=== PATIENT | female | born 1960 | race Caucasian/White ===

== ENCOUNTER 2016-10-16 15:29 | Outpatient (CLI) | payer BC ==
--- NOTE | 2016-10-17 21:22 | Mammography Report ---
DIGITAL SCREENING MAMMOGRAM: 10/16/2016 CLINICAL INDICATION: A 56-year-old with history of benign left breast biopsy, bilateral implants for screening. COMPARISON: 09/2015, 07/2014, 07/2013, 07/2012, 01/2012, 07/2011, 05/2010, 12/2008. TECHNIQUE: Routine CC and MLO projections as well as bilateral implant displaced views were obtained of the breasts. The breasts again demonstrate heterogeneously dense fibroglandular parenchyma bilaterally. Bilateral subpectoral implants are stable. In the left lower inner anterior breast, there is a possible obscu red nodule. Further evaluation with spot compression views and possible ultrasound is recommended. No mammographically suspicious findings are appreciated in the right breast. IMPRESSION: INCOMPLETE EXAMINATION. RECOMMENDATION: ADDITIONAL EVALUATION OF THE LEFT BREAST ABOVE. BIRADS CATEGORY: 0, INCOMPLETE. STANDARD QUALIFYING STATEMENTS 1. This examination was reviewed with the aid of Computed-Aided Detection (CAD). 2. A negative or benign imaging report should not delay biopsy if clinically suspicious findings are present. Consider surgical consultation if warranted. More than 5% of cancers are not identified b y imaging. 3. Dense breasts may obscure an underlying neoplasm. JOB #: [id number] EXT JOB #:[id number]
== END 2016-10-16 15:30 | disposition home or self-care (01) ==
LOC: DI.N 15:29
PROVIDERS: ATTEND Family Medicine
DX: Z12.31 Encounter for screening mammogram for malignant neoplasm of breast (principal); R92.8 Other abnormal and inconclusive findings on diagnostic imaging of breast; Z98.82 Breast implant status
CPT/HCPCS: 77067

== ENCOUNTER 2016-10-31 13:48 | Outpatient (CLI) | payer BC ==
--- NOTE | 2016-10-31 18:18 | Ultrasound Report ---
LEFT BREAST ULTRASOUND: 10/31/2016 CLINICAL INDICATION: Persistent density on mammogram. TECHNIQUE: Real-time scanning was performed with roofing sales representative static images obtained. FINDINGS: Ultrasound of the left periareolar breast was performed. Prominent subareolar ducts are n oted. No intraductal mass or abnormal vascularity is appreciated. No sonographically suspicious fin dings are seen. IMPRESSION: SUBAREOLAR DUCTS, ACCOUNTING FOR THE MAMMOGRAPHIC ABNORMALITY. RECOMMENDATION: Routine annual screening unless otherwise clinically indicated. BI-RADS category 2, benign findings. JOB #: [id number] EXT JOB #:[id number]
--- NOTE | 2016-10-31 19:01 | Mammography Report ---
DIGITAL DIAGNOSTIC LEFT MAMMOGRAM: 10/31/2016 CLINICAL INDICATION: Possible nodule on screening. TECHNIQUE: Left true lateral and spot compression views. COMPARISON: 10/16/2016, 10/06/2015, 08/04/2014, 07/22/2013, 07/23/2012, 01/17/2012, 08/17/2011, 07/10, 07/28/2011, 05/26/2010, 12/31/2008. The left breast again demonstrates heterogeneously dense fibroglandular parenchyma. A 1 cm density p ersists in the left retroareolar breast. No associated calcifications are seen. Please also refer t o left breast ultrasound for further findings. IMPRESSION: BENIGN FINDINGS, WITH PROMINENT SUBAREOLAR DUCTS ACCOUNTING FOR THE MAMMOGRAPHIC ABNORMA LITY, WITHOUT EVIDENCE OF AN INTRALUMINAL FILLING DEFECT OR OTHER SUSPICIOUS FINDING. RECOMMENDATION: ROUTINE ANNUAL SCREENING UNLESS OTHERWISE CLINICALLY INDICATED. BIRADS CATEGORY: 2, BENIGN FINDINGS. STANDARD QUALIFYING STATEMENTS 1. This examination was reviewed with the aid of Computed-Aided Detection (CAD). 2. A negative or benign imaging report should not delay biopsy if clinically suspicious findings are present. Consider surgical consultation if warranted. More than 5% of cancers are not identified b y imaging. 3. Dense breasts may obscure an underlying neoplasm. JOB #: [id number] EXT JOB #:[id number]
== END 2016-10-31 13:49 | disposition home or self-care (01) ==
LOC: DI 13:48
PROVIDERS: ATTEND Family Medicine
DX: N63 Unspecified lump in breast (principal)
CPT/HCPCS: 76642

== ENCOUNTER 2017-04-10 07:10 | Outpatient (CLI) | payer BC ==
[2017-04-10 13:04] LABS: BASOPHILS % (AUTO) 0.5 %; EOSINOPHILS # (AUTO) 0.1 10^3/uL (0.0-0.7); EOSINOPHILS % (AUTO) 3.3 %; HGB - HEMOGLOBIN 12.7 g/dL (12.0-16.0); LYMPHOCYTES # (AUTO) 1.7 10^3/uL (1.5-3.5); LYMPHOCYTES % (AUTO) 37.5 %; MEAN CORPUSCULAR HGB CONC 34.3 g/dL (32.0-36.0); MEAN CORPUSCULAR VOLUME 84.7 fL (81.0-99.0); MEAN PLATELET VOLUME 9.1 fL (7.9-10.8); MONOCYTES # (AUTO) 0.5 10^3/uL (0.0-1.0); NEUTROPHILS # (AUTO) 2.1 10^3/uL (1.5-6.6); NEUTROPHILS % (AUTO) 46.7 %; PLT - PLATELET COUNT 167 10^3/uL (130-450); RED BLOOD COUNT 4.38 10^6/uL (4.20-5.40); RED CELL DISTRIBUTION WIDTH 12.9 % (12.0-15.0); WHITE BLOOD COUNT 4.5 x10^3/uL (4.8-10.8)
[2017-04-10 13:24] LABS: ALBUMIN 4.1 g/dL (3.2-5.5); ALBUMIN/GLOBULIN RATIO 1.5 (1.0-2.2); ALKALINE PHOSPHATASE 65 IU/L (42-121); ALT ALANINE AMINOTRANSFERASE 16 IU/L (10-60); AST ASPARTATE AMINOTRANSFERASE 21 IU/L (10-42); BUN - BLOOD UREA NITROGEN 13 mg/dL (6-20); CARBON DIOXIDE - CO2 31 mmol/L (21-32); CHLORIDE 103 mmol/L (101-111); CHOL/HDL RATIO 2.5 (<4.4); CHOLESTEROL 162 mg/dL; CREATININE 0.7 mg/dL (0.4-1.0); GFR - MDRD 87 (>89); GLUCOSE 98 mg/dL (70-100); HDL CHOLESTEROL 65 mg/dL; LDL CHOLESTEROL,CALCULATED 88 mg/dL; LDL/HDL RATIO 1.4 (<4.4); SODIUM 140 mmol/L (135-145); TOTAL PROTEIN 6.8 g/dL (6.7-8.2); VLDL CHOLESTEROL 9 mg/dL
[2017-04-10 13:55] LABS: HB2 TOTAL 13.6 g/dL; HEMOGLOBIN A1C 0.43 g/dL
== END 2017-04-10 07:11 | disposition home or self-care (01) ==
LOC: LAB.WCP 07:10
PROVIDERS: ATTEND Family Medicine
DX: Z00.00 Encounter for general adult medical examination without abnormal findings (principal)
CPT/HCPCS: 36415; 80053; 80061; 83036; 84443; 85025

== ENCOUNTER 2017-11-20 15:44 | Outpatient (CLI) | payer BC ==
--- NOTE | 2017-11-21 10:02 | Mammography Report ---
Procedure Date: 11/20/2017 Accession Number: [id number] / [id number] Procedure: MGN - Screening Mammo Dig w/Implants CPT Code: FULL RESULT: EXAM: Screening Mammo Dig w/Implants DATE: 11/20/2017 4:13 PM CLINICAL HISTORY: 57-year-old female with history of bilateral breast implants as well as left breast biopsy with benign pathology results. TECHNIQUE: Bilateral CC and MLO views were obtained. Bilateral implant displaced view in CC and MLO projection were also performed. COMPARISON: 10/16/2016, 10/06/2015, 08/04/2014, 07/22/2013. FINDINGS: The breasts demonstrate heterogeneously dense fibroglandular parenchyma bilaterally. Bilateral breast implants appear radiologically intact there are coarse typically benign bilateral calcifications. No suspicious masses, clustered microcalcifications, or regions of architectural distortion are identified. IMPRESSION: Benign findings RECOMMENDATION: Routine annual screening unless otherwise clinically indicated. BIRADS CATEGORY 2: Benign findings STANDARD QUALIFYING STATEMENTS: 1. This examination was reviewed with the aid of Computer-Aided Detection (CAD). 2. A negative or benign imaging report should not delay biopsy if clinically suspicious findings are present. Consider surgical consultation if warrented. More than 5% of cancers are not identified by imaging. 3. Dense breasts may obscure an underlying neoplasm.
== END 2017-11-20 15:45 | disposition home or self-care (01) ==
LOC: DI.N 15:44
PROVIDERS: ATTEND Radiology Diagnostic Radiology
DX: Z12.31 Encounter for screening mammogram for malignant neoplasm of breast (principal); Z98.82 Breast implant status
CPT/HCPCS: 77067

== ENCOUNTER 2018-05-27 09:15 | Outpatient (CLI) | payer BC ==
[2018-05-27 12:16] LABS: BASOPHILS % (AUTO) 0.3 %; EOSINOPHILS # (AUTO) 0.1 10^3/uL (0.0-0.7); EOSINOPHILS % (AUTO) 1.9 %; LYMPHOCYTES # (AUTO) 1.4 10^3/uL (1.5-3.5); MEAN CORPUSCULAR HEMOGLOBIN 28.8 pg (27.0-31.0); MEAN CORPUSCULAR HGB CONC 33.9 g/dL (32.0-36.0); MEAN CORPUSCULAR VOLUME 84.9 fL (81.0-99.0); MEAN PLATELET VOLUME 8.8 fL (7.9-10.8); MONOCYTES # (AUTO) 0.4 10^3/uL (0.0-1.0); MONOCYTES % (AUTO) 10.7 %; NEUTROPHILS # (AUTO) 1.8 10^3/uL (1.5-6.6); NEUTROPHILS % (AUTO) 50.1 %; PLT - PLATELET COUNT 177 10^3/uL (130-450); RED CELL DISTRIBUTION WIDTH 12.8 % (12.0-15.0); WHITE BLOOD COUNT 3.7 x10^3/uL (4.8-10.8)
[2018-05-27 12:57] LABS: ALBUMIN 4.2 g/dL (3.2-5.5); ALBUMIN/GLOBULIN RATIO 1.4 (1.0-2.2); ALKALINE PHOSPHATASE 68 IU/L (42-121); ALT ALANINE AMINOTRANSFERASE 17 IU/L (10-60); AST ASPARTATE AMINOTRANSFERASE 21 IU/L (10-42); BILIRUBIN,TOTAL 0.8 mg/dL (0.2-1.0); BUN - BLOOD UREA NITROGEN 14 mg/dL (6-20); CALCIUM 9.3 mg/dL (8.5-10.3); CARBON DIOXIDE - CO2 29 mmol/L (21-32); CHLORIDE 103 mmol/L (101-111); CHOL/HDL RATIO 2.5 (<4.4); CHOLESTEROL 158 mg/dL; CREATININE 0.7 mg/dL (0.4-1.0); GFR - MDRD 86 (>89); GLUCOSE 100 mg/dL (70-100); HDL CHOLESTEROL 62 mg/dL; SODIUM 139 mmol/L (135-145); TOTAL PROTEIN 7.3 g/dL (6.7-8.2)
[2018-05-27 13:19] LABS: LDL CHOLESTEROL,DIRECT 94 mg/dL; LDLD/HDL RATIO 1.5 (<4.4)
== END 2018-05-27 09:16 | disposition home or self-care (01) ==
LOC: LAB.WCP 09:15
PROVIDERS: ATTEND Physician Assistant
DX: Z00.00 Encounter for general adult medical examination without abnormal findings (principal); E01.0 Iodine-deficiency related diffuse (endemic) goiter; D72.819 Decreased white blood cell count, unspecified
CPT/HCPCS: 36415; 80053; 80061; 83721; 84443; 85025

== ENCOUNTER 2018-05-27 10:55 | Outpatient (CLI) | payer BC ==
--- NOTE | 2018-05-28 13:30 | Ultrasound Report ---
Reason: THYROMEGALY Procedure Date: 05/27/2018 Accession Number: [id number] / [id number] Procedure: US - Head or Neck Soft Tissue CPT Code: FULL RESULT: EXAM: THYROID ULTRASOUND EXAM DATE: 05/27/2018 11:28 AM. CLINICAL HISTORY: THYROMEGALY. COMPARISON: None. TECHNIQUE: Real time sonographic imaging of the thyroid was performed by the sanforizer. Multiple underwriting sales representative static images were saved for review. FINDINGS: THYROID GLAND: Right Lobe: 3.7 x 1.3 x 1.5 cm, volume 3.8 cc. Normal background echotexture. Right Lobe Nodules: None. Left Lobe: 4 x 0.93 x 1.62 cm, volume 3.2 cc. Normal background echotexture. Left Lobe Nodules: None. Isthmus: 0.2 cm AP. Isthmic Nodules: None. LYMPH NODES: No adenopathy demonstrated in the central or lateral compartment. OTHER: None. IMPRESSION: Normal thyroid gland RADIA
== END 2018-05-27 10:56 | disposition home or self-care (01) ==
LOC: DI 10:55
PROVIDERS: ATTEND Physician Assistant
DX: E01.0 Iodine-deficiency related diffuse (endemic) goiter (principal); Z00.00 Encounter for general adult medical examination without abnormal findings; D72.819 Decreased white blood cell count, unspecified
CPT/HCPCS: 36415; 76536; 80053; 80061; 83721; 84443; 85025

== ENCOUNTER 2018-06-25 13:09 | Outpatient (CLI) | payer BC ==
--- NOTE | 2018-06-25 16:12 | XRAY Report ---
Reason: DYSPHASIA Procedure Date: 06/25/2018 Accession Number: [id number] / [id number] Procedure: FL - Modified Barium Swallow W/SP CPT Code: FULL RESULT: EXAM: MODIFIED BARIUM SWALLOW EXAM DATE: 06/25/2018 01:49 PM. CLINICAL HISTORY: Dysphagia. COMPARISON: None. TECHNIQUE: Under the direction of speech pathology, patient swallowed various consistencies of barium under lateral fluoroscopic observation of the neck. Fluoroscopy Time: 58 seconds. Number of Images: 49. FINDINGS: Swallowing Mechanism: Normal oral phase and swallowing reflex. Airway Protection: Normal epiglottic motion. No episodes of tracheal penetration or aspiration with all consistencies of barium. Pharynx: Normal. No significant vallecular or pyriform sinus contrast pooling. Other: None. IMPRESSION: Normal modified barium swallow. No aspiration identified. RADIA
== END 2018-06-25 13:10 | disposition home or self-care (01) ==
LOC: DI 13:09
PROVIDERS: ATTEND Physician Assistant
DX: R47.02 Dysphasia (principal)
CPT/HCPCS: 74230

== ENCOUNTER 2018-12-12 15:46 | Outpatient (CLI) | payer BC ==
--- NOTE | 2018-12-16 13:39 | Mammography Report ---
Reason: SCREENING MAMMO Procedure Date: 12/12/2018 Accession Number: [id number] / [id number] Procedure: MGN - Screening Mammo Dig w/Implants CPT Code: FULL RESULT: EXAM: Screening Mammo Dig w/Implants DATE: 12/12/2018 4:44 PM CLINICAL HISTORY: Routine screening. Prior history of benign left stereotactic tactic biopsy TECHNIQUE: (B) - Bilateral CC and MLO views were obtained. COMPARISON: 11/20/2017, 10/31/2016, 10/16/2016 and 10/06/2015 PARENCHYMAL PATTERN: (VD) - The breasts demonstrate extremely dense parenchyma bilaterally, limiting the sensitivity of mammography. FINDINGS: No significant interval change. There are no suspicious masses, calcifications, or areas of distortion. Bilateral implants and scattered calcifications are stable. IMPRESSION: Negative examination. BI-RADS category 1. RECOMMENDATION: (ANNUAL) - Recommend routine annual screening mammography. BI-RADS CATEGORY: (1) - Negative. STANDARD QUALIFYING STATEMENTS: 1. This examination was not reviewed with the aid of Computer-Aided Detection (CAD). 2. A negative or benign imaging report should not preclude biopsy if clinically suspicious findings are present. 3. Dense breasts may obscure an underlying neoplasm. 4. This examination was reviewed without the aid of 3D breast imaging (tomosynthesis).
== END 2018-12-12 15:47 | disposition home or self-care (01) ==
LOC: DI.N 15:46
PROVIDERS: ATTEND Internal Medicine
DX: Z12.31 Encounter for screening mammogram for malignant neoplasm of breast (principal)
CPT/HCPCS: 77067